=== PATIENT | female | born 1980 | race Caucasian/White ===

== ENCOUNTER 2024-06-26 10:53 | Day surgery (SDC) | payer SELFPAY ==
[2024-06-26] VITALS (8 sets, daily range): BP systolic 105–118; BP diastolic 66–83; BMI 24.9
--- NOTE | 2024-06-26 17:45 | SUR.PHASEI ---
patient discharged from [facility] by ambulance (stretcher) to [facility] - report called to nursing unit at [facility]. Awake and alert, instructions both written and verbal from Dr Thakkar. Patient had good understanding. understands that her life depends on stopping
ETOH use. Tearful.
== END 2024-06-26 17:20 | disposition short-term general hospital (02) ==
LOC: SDS 10:53
PROVIDERS: ATTENDING PHYSICIAN Internal Medicine Gastroenterology; FAMILY PHYSICIAN Family Medicine
DX: K76.6 Portal hypertension (principal); I85.00 Esophageal varices without bleeding; K31.89 Other diseases of stomach and duodenum; K83.8 Other specified diseases of biliary tract; K80.20 Calculus of gallbladder without cholecystitis without obstruction; K86.9 Disease of pancreas, unspecified; K80.50 Calculus of bile duct without cholangitis or cholecystitis without obstruction; R93.2 Abnormal findings on diagnostic imaging of liver and biliary tract
CPT/HCPCS: 43244; 43237

== ENCOUNTER → 2024-07-07 14:30 | Day surgery (SDC) | payer SELFPAY ==
[2024-07-07] VITALS (9 sets, daily range): BP systolic 98–109; BP diastolic 50–68; BMI 27.0
--- NOTE | 2024-07-07 22:11 | TRANSFER ---
pt was transferred to [facility] via ambulance. 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 Pt vss stable, no complains of pain. pt's belonging was given to her. No other issues noted.
== END ==
LOC: SDS 14:30
PROVIDERS: ATTENDING PHYSICIAN Internal Medicine Gastroenterology
PROC: 0FC98ZZ Extirpation of Matter from Common Bile Duct, Via Natural or Artificial Opening Endoscopic (ICD-10-PCS; 2024-07-07)
PROC: 0F7D8DZ Dilation of Pancreatic Duct with Intraluminal Device, Via Natural or Artificial Opening Endoscopic (ICD-10-PCS; 2024-07-07)
DX: K80.50 Calculus of bile duct without cholangitis or cholecystitis without obstruction (principal); I85.00 Esophageal varices without bleeding; K76.6 Portal hypertension; K31.89 Other diseases of stomach and duodenum; I86.4 Gastric varices
CPT/HCPCS: 43264; 43274; 74330; 76000; C1769; C2617

== ENCOUNTER → 2025-04-08 12:02 | Outpatient (REF) | payer OTHER, SELFPAY | LOC: RAD 12:02 | PROVIDERS: ATTENDING PHYSICIAN Internal Medicine Gastroenterology; FAMILY PHYSICIAN Family Medicine | DX: K70.11 Alcoholic hepatitis with ascites (principal); M79.644 Pain in right finger(s) | CPT/HCPCS: 73130; 76700 ==

== ENCOUNTER → 2025-04-11 12:54 | Outpatient (REF) | payer OTHER, SELFPAY | LOC: WDC 12:54 | PROVIDERS: ATTENDING PHYSICIAN Family Medicine | DX: Z12.31 Encounter for screening mammogram for malignant neoplasm of breast (principal) | CPT/HCPCS: 77063; 77067 ==